=== PATIENT | female | born 1965 | race Caucasian/White ===

== ENCOUNTER 2016-09-18 13:31 | Day surgery (SDC) | payer BC ==
[2016-09-17 09:56] LABS: HEMOGLOBIN 14.1 g/dL (12.0-16.0)
[2016-09-17 10:07] LABS: BUN (BLOOD UREA NITROGEN) 10 MG/DL (6-23); CALCIUM, SERUM 9.7 MG/DL (8.5-10.4); CHLORIDE, SERUM 104 MMOL/L (96-112); CO2 (CARBON DIOXIDE) 30 MMOL/L (24-34); GFR AFRICAN AMERICAN 85 ML/MIN (>=60); GFR NON AFRICAN AMERICAN 74 ML/MIN (>=60); GLUCOSE, SERUM 93 MG/DL (60-99); POTASSIUM, SERUM 4.6 MMOL/L (3.5-5.3); SODIUM, SERUM 142 MMOL/L (135-148)
--- NOTE | ~2016-09-18 | OP ---
Record Of Operation [facility] [address] [place]. [address] NAME: BANDAR OCHOA : 63 STATUS : [facility]#: [id number] AGE: 51 ADM/REG DATE : 09/18/16 MR#: [id number] REPORT SERV DATE: 09/19/16 DICTATED BY: Haider RODRIGUEZ DATE: 09/18/16 REPORT STATUS : Draft TRANSCRIBED BY: CHANTEL DATE: 09/18/16 DATE OF PROCEDURE: 09/18/2016 PREOPERATIVE DIAGNOSES: 1. Basal cell carcinoma of the right cheek. 2. Defect of the right cheek secondary to Mohs micrographic surgical excision of basal cell carcinoma. POSTOPERATIVE DIAGNOSES: 1. Basal cell carcinoma of the right cheek. 2. Defect of the right cheek secondary to Mohs micrographic surgical excision of basal cell carcinoma. NAME OF OPERATION: 1. Surgical excisional preparation of right medial cheek defect. 2. Reconstruction of right medial cheek defect with rotation flap closure. FINDINGS: 12 mm wide x 11 mm tall defect of the right medial cheek with beveled edges, and located 11 mm from the melolabial fold and 12 mm from the right nasal ala and 11 mm from the right infraorbital rim. INDICATIONS: This 51-year-old female had a biopsy-proven basal cell carcinoma removed today by Mohs micrographic surgical technique in her dermatology office. This required two excisions to obtain clear margins. She now presents for reconstruction. At a separate consultation, prior to the Mohs surgery, I discussed the pros and cons, alternatives, benefits, risks, limitations, and complications associated with the anticipated defect that would occur following her Mohs micrographic surgical excision. She now presents today for reconstruction. Questions answered. She wishes to proceed. No guarantees expressed. Proper consent obtained. DESCRIPTION OF PROCEDURE: She was taken to the operating room and given general oral endotracheal anesthesia in the supine position. The dressing on her cheek was removed revealing the moderately large defect of the right mid cheek. The face and upper neck were prepped with Hibiclens and saline followed by isopropyl alcohol. None of these solutions got in her eyes. None of the alcohol got into the wound. Sterile drapes were applied. First, the melolabial fold was marked out on the right side. Next, the relaxed skin tension lines/wrinkles of the lower eyelid and cahuilla's feet area were marked out and serial lines were then marked out from the cahuilla's feet towards the melolabial fold, mimicking the natural relaxed skin tension lines. The defect measured as stated above. The location was as stated above. The beveled edges were marked out and then a long curving fusiform ellipse following the relaxed skin tension lines was then marked out. This was a total length of 5.8 cm long and a 13 mm wide. The cheek was then injected with 1% Xylocaine with 1:100,000 epinephrine. An infraorbital nerve block was accomplished with 0.5% Marcaine with 1:200,000 epinephrine. Additional Marcaine 0.5% with 1:200,000 epinephrine was injected at the right nasal ala. Seven minutes elapsed for vasoconstriction. Record Of Operation [place] [id number] [facility] [place]. [address] NAME: BANDAR OCHOA : 63 STATUS : [facility]#: [id number] AGE: 51 ADM/REG DATE : 09/18/16 MR#: [id number] REPORT SERV DATE: 09/19/16 DICTATED BY: Haider RODRIGUEZ DATE: 09/18/16 REPORT STATUS : Draft TRANSCRIBED BY: CHANTEL DATE: 09/18/16 With a #15 blade, bevelling it away from the defect, the beveled edges of the defect were excised along with the fusiform ellipse that encompassed the defect. This was excised full- thickness skin and upper subcutaneous tissue. Intermediate closure could not be accomplished. A lateral rotation flap was elevated measuring 2 cm x 6 cm. This flap was then rotated and secured with 5-0 Vicryl except up at the upper end in the loose skin of the nasofacial sulcus where 6-0 Vicryl was used. The wounds were cleansed with hydrogen peroxide and dried. The majority of the skin edges were coapted with 6-0 Prolene except for the very superior 1.5 cm of the incision. Mastisol and paper tape were then applied in an antitension fashion. Estimated blood loss was less than 10 mL. She was awakened and extubated and taken to the recovery room in good condition having tolerated the procedure well. Home going instructions include keeping the tape dry and intact and rechecking in the office in six days. Prescriptions were written for generic Zofran 8 mg ODT, #6, one dissolved orally q.6 hours p.r.n. nausea or vomiting; hydrocodone 7.5 mg/325 APAP #15, one p.o. q.4 to 6h p.r.n. pain; cephalexin 500 mg #20, one p.o. b.i.d. (she is already taking cephalexin at home for a left lower lid stye, which has responded quickly to the cephalexin. I told her that I have written a prescription for cephalexin, but if she has plenty of the cephalexin at home for one more week of antibiotics, she does not need to get this prescription filled. Otherwise, fill the prescription to allow for a week of antibiotic). She is to avoid laughing, talking, smiling, chewing. She is to keep her face still. SAMANTA/CHANTEL Haider Rodriguez M.D. / [id number]
[~2016-09-18 13:31] MED LIST: K500 PO; [UNRECOGNIZED DRUG - OTHER] T
== END 2016-09-18 21:23 | disposition home or self-care (01) ==
LOC: SDC 13:31
PROVIDERS: Specialist
PROC: 0HB1XZZ Excision of Face Skin, External Approach (ICD-10-PCS; 2016-09-18)
PROC: 0HX1XZZ Transfer Face Skin, External Approach (ICD-10-PCS; principal; 2016-09-18 15:15)
DX: Z42.8 Encounter for other plastic and reconstructive surgery following medical procedure or healed injury (principal); C44.319 Basal cell carcinoma of skin of other parts of face; E78.00 Pure hypercholesterolemia, unspecified; Z79.2 Long term (current) use of antibiotics; Z79.899 Other long term (current) drug therapy; Z90.89 Acquired absence of other organs; Z98.82 Breast implant status
CPT/HCPCS: 80048; 84703; 85014; 85018; 93005; A9270-GY; J0690; J2250; J2405; J2710; J3010